=== PATIENT | female | born 1970 | race American Indian/Alaskan Native ===

== ENCOUNTER 2019-03-15 14:05 | Outpatient (CLI) | payer OTHER ==
--- NOTE | 2019-03-15 15:46 | Magnetic Resonance Report ---
MR LE joint RT wo con INDICATION / CLINICAL INFORMATION: PAIN IN RIGHT KNEE.. TECHNIQUE: Multiplanar, multisequence MR images were obtained. COMPARISON: None available. FINDINGS: Minimal joint fluid is present. The menisci are normal without evidence of a tear. Cruciate ligaments , collateral ligaments and extensor mechanism are intact. Articular cartilage is unremarkable in appe arance. No abnormal marrow signal is seen. IMPRESSION: Negative MRI of the right knee Signer Name: Michael Duval MD FACMelodie Signed: 03/15/2019 3:41 PM Workstation Name: [id number] [id number]
== END 2019-03-15 14:06 | disposition home or self-care (01) ==
LOC: MRI 14:05
PROVIDERS: ATTEND Orthopaedic Surgery
DX: M25.551 Pain in right hip (principal)
CPT/HCPCS: 73721

== ENCOUNTER 2019-05-30 15:43 | Outpatient (CLI) | payer OTHER ==
--- NOTE | 2019-05-30 17:28 | Magnetic Resonance Report ---
MRI LUMBAR SPINE WITHOUT CONTRAST INDICATION / CLINICAL INFORMATION: M54.5 Low back pain. TECHNIQUE: Multisequence, multiplanar images of the lumbar spine were obtained. COMPARISON: None available. FINDINGS: ALIGNMENT: Normal lumbar lordosis without significant scoliosis. VERTEBRAE:Normal marrow signal and vertebral body height for age. VISUALIZED SPINAL CORD: No significant abnormality. ENHBJ-YF-KPOKI ANALYSIS: L1-2: No significant abnormality. L2-3: No significant abnormality. L3-4: There is mild symmetric bulging of the disc and mild bilateral facet DJD without significant ca nal or foraminal narrowing. L4-5: There is mild bilateral facet DJD without significant canal or foraminal narrowing. L5-S1: There is moderate bilateral facet DJD and mild symmetric bulging of the disc. There is moderat e left and mild right neural foraminal narrowing. PARASPINAL SOFT TISSUES: No significant abnormality. ADDITIONAL FINDINGS: None. IMPRESSION: 1. Multilevel degenerative findings from L3 to S1 as described. Signer Name: Eleuterio Nassar MD Signed: 05/30/2019 5:24 PM Workstation Name: [id number]
== END 2019-05-30 15:44 | disposition home or self-care (01) ==
LOC: MRI 15:43
PROVIDERS: ATTEND Orthopaedic Surgery
DX: M47.817 Spondylosis without myelopathy or radiculopathy, lumbosacral region (principal); M51.27 Other intervertebral disc displacement, lumbosacral region; M48.07 Spinal stenosis, lumbosacral region
CPT/HCPCS: 72148

== ENCOUNTER 2019-07-07 11:06 | Day surgery (SDC) | payer OTHER ==
[2019-07-07 11:50] VITALS: BP 116/73
[2019-07-07] MEDS ORDERED: LIDOCAINE (1%) 10 MG/1 ML VIAL 20 ML MDV ONE (12:21)
[2019-07-07] MEDS ORDERED: BUPIVACAINE/PF (0.5%) 5 MG/1 ML 30 ML VIAL INFILTRATI ONE ×2 (12:22→13:36)
[2019-07-07] MEDS ORDERED: LIDOCAINE (1%) 10 MG/1 ML VIAL 20 ML MDV INFILTRATI ONE (13:36)
--- NOTE | 2019-07-07 13:51 | Procedure Note ---
Date of procedure: 07/07/19 Pre-op diagnosis: Low back pain Post-op diagnosis: same Procedure: Lumbar facet blocks at [right] L2 through L5 Procedure The patient was brought to the OR and placed prone onto the OR table, the lumbar spine was prepped and draped in the usual sterile manner. A timeout procedure was done to identify the patient and the correct levels of nerve block being performed the patient was awake during the procedure. Using C-arm fluoroscopy the L5 through L2 levels were visualized in both the PA and 45 oblique views 20-gauge spinal needles were inserted again under direct fluoroscopic control after placing the spinal needles and the correct position and Marcaine injection was performed using 1% without epinephrine. The patient tolerated the procedure and no complications Anesthesia: local Surgeon: ANASTASIA LEY Estimated blood loss: minimal Pathology: none Condition: stable Disposition: observation
--- NOTE | 2019-07-07 14:00 | Fluoroscopy Report ---
LUMBAR SPINE ONE VIEW INDICATION: LOW BACK PAIN. Intraoperative image at time of L2-L5 nerve block COMPARISON: 05/30/2019 MRI FINDINGS/IMPRESSION: Left-sided needles are identified at the L2-L5 levels. For more detail, please refer to the operative report. Signer Name: Juan Juan MD Signed: 07/07/2019 1:55 PM Workstation Name: [id number]
== END 2019-07-07 13:36 | disposition home or self-care (01) ==
LOC: OR 11:06
PROVIDERS: ATTEND Orthopaedic Surgery
DX: M54.5 Low back pain (principal); M47.817 Spondylosis without myelopathy or radiculopathy, lumbosacral region; Z79.84 Long term (current) use of oral hypoglycemic drugs; E78.00 Pure hypercholesterolemia, unspecified; I10 Essential (primary) hypertension; J45.909 Unspecified asthma, uncomplicated; Z90.710 Acquired absence of both cervix and uterus; F41.9 Anxiety disorder, unspecified; Z90.721 Acquired absence of ovaries, unilateral; Z79.899 Other long term (current) drug therapy
CPT/HCPCS: 77002; 82962